=== PATIENT | female | born 1950 | race Caucasian/White ===

== ENCOUNTER → 2017-10-24 17:28 | Outpatient (CLI) | payer MEDICARE | END | disposition home or self-care (01) | LOC: D.LABREF 17:28 | DX: R31.9 Hematuria, unspecified (principal) ==

== ENCOUNTER → 2017-11-03 08:16 | Outpatient (CLI) | payer MEDICARE | END | disposition home or self-care (01) | LOC: D.CT 08:16 | DX: R31.9 Hematuria, unspecified (principal) ==

== ENCOUNTER 2018-03-08 08:00 | Outpatient (CLI) | payer MEDICARE ==
[2018-04-05] MEDS ORDERED: ASTEPRO30 M1 NASAL (14:32)
[2018-04-05] MEDS ORDERED: HYZAAR 100-12.51 TAB PO (14:32)
[2018-04-05] MEDS ORDERED: OXYBUTYNIN CHLOR5 MG PO (14:32)
[2018-04-05] MEDS ORDERED: TOPROL XL50 MG PO (14:32)
[2018-04-05] MEDS ORDERED: OYST-CAL-5001 TAB PO (14:33)
[2018-04-05] MEDS ORDERED: MULTI-DAY VITAM1 TAB PO (14:33)
[2018-04-05] MEDS ORDERED: VITAMIN D5000 UNIT PO (14:34)
[2018-04-05] MEDS ORDERED: CALCIUM 600+D T1 TA1 PO (14:36)
[2018-04-05] MEDS ORDERED: NUTRISOURCE FI1 EACH PO (14:36)
[2018-04-06 06:16] VITALS: BMI 22.6
== END 2018-03-08 09:00 | disposition home or self-care (01) ==
LOC: D.MAMMO 08:00
DX: Z12.31 Encounter for screening mammogram for malignant neoplasm of breast (principal)

== ENCOUNTER 2018-04-06 05:30 | Day surgery (SDC) | payer MEDICARE ==
[2018-04-05 15:29] LABS: HEMATOCRIT 37.3 % (36.0-48.0); HEMOGLOBIN 12.7 g/dL (12-16); MCH 31.2 pg (26.0-34.0); MCV 91.6 fL (80.0-100.0); MEAN PLATELET VOLUME 9.3 fL (7.4-10.4); RBC 4.07 10x6/uL (4.00-5.40); RDW 12.9 % (11.5-14.5); WBC 5.8 10x3/uL (4.8-10.8)
[2018-04-05 15:46] LABS: CALC OSMOLALITY 270 mosm/kg (275-300); CALCIUM 9.6 mg/dL (8.5-10.1); CARBON DIOXIDE 31.4 mmol/L (21.0-32.0); CHLORIDE - SERUM 99 mmol/L (98-107); CREATININE - SERUM 0.7 mg/dL (0.6-1.3); GLUCOSE 95 mg/dL (74-106); POTASSIUM - SERUM 3.9 mmol/L (3.5-5.1); SODIUM 135 mmol/L (136-145); UREA NITROGEN 15 mg/dL (7-18); eGFR NON AFRICAN AMERICAN 88 mL/min (90-120)
[~2018-04-06] VITALS: Ht 167.6 cm; Wt 63.5 kg
--- NOTE | ~2018-04-06 | OP ---
PATIENT NAME: LIV TIERNEY MEDICAL RECORD: [id number] :48 LOCATION:D.OPS ADMISSION DATE: SURGEON: AP STRATTON MD DATE OF OPERATION: 04/06/2018 SURGEON: Ap Stratton MD ANESTHESIA: General anesthesia by Javi Garcia CRNA. PROCEDURES: Cystoscopy, cystocele repair using 8 x 12 cm bovine fascia ([employer] Xenform), rectocele repair by levator ani plication. FINDINGS: On cystoscopy, single ureteral orifices, no bladder tumors. No bladder injury. SPECIMEN: Posterior vaginal wall. PREOPERATIVE DIAGNOSES: Microscopic hematuria, midline cystocele, Flushing-Walker grade III and rectocele grade II. BLOOD LOSS: Minimal. CLINICAL INDICATION: This is a 68-year-old female who has microscopic hematuria and a known pelvic prolapse including a midline cystocele, Flushing-Walker grade III and a rectocele Flushing-Walker grade II. She also has issues with urge urinary incontinence, which is being managed with oxybutynin. For the hematuria workup, she had a CT scan of the abdomen and pelvis, which was normal and urine cytology was also normal. She only requires cystoscopy to complete the hematuria workup. Regarding the pelvic prolapse repair, her coke loader had offered her repair including hysterectomy. She does not want to have a hysterectomy done and she has held off having this done. I offered her cystocele and rectocele repair from a vaginal approach with the ability to leave the uterus in. I did discuss different graft materials including fascia versus mesh. She had initially given consent for mesh. SHE IS ALLERGIC TO SOTALOL, SULFA AND MANGOS. We gave her Ancef industrial controls technician to the OR. DESCRIPTION OF PROCEDURE: The patient was given induction of general anesthesia in supine position. She was then placed into dorsal lithotomy position and prepped and draped. A 16-Pakistani Stout catheter was put into the bladder and put to bag drainage. #2 nylon sutures were used as stay sutures to retract the labia majora laterally. These were anchored to the medial thighs. A weighted speculum was used to hold down the posterior vaginal wall. The cystocele was quite evident. The anterior vaginal wall was infiltrated with Pitressin solution. Twenty units of Pitressin was dissolved in 100 mL of injectable normal saline. This was used for hydrodissection of the anterior vaginal wall. A transverse incision was made at the level of the bladder neck where the urethra met the bladder neck. This was made using a #15 blade. Then, dissection with Metzenbaum scissors was performed to remove the anterior vaginal wall to separate the anterior vaginal wall from the bladder. Laterally, we broke through the pubocervical fascia on either side. Posteriorly, we entered the presacral space and cleared the area around the sacrospinous ligaments and the ischial spine to which they are anchored. While I was doing the dissection of the anterior vaginal wall, I made a small laceration through the anterior vaginal wall about 1 cm in length. This was repaired using a running 4-0 Monocryl. However, due to the presence of the laceration, I was uncomfortable OPERATIVE REPORT [id number] LIV TIERNEY with placement of mesh. I therefore decided to switch to use of bovine fascia to prevent any future infection risk. I measured the distance from ischial spine to ischial spine and it did field return repairer to be 12 cm. The distance from the cervical neck to the level of the bladder neck was 6 cm. An 8 x 12 cm bovine graft was then placed on the prep table. An arch was marked out for the posterior portion of the graft. This arch is to prevent constriction of the rectum and to prevent difficulty with defecation. The distance from the bladder neck region of the graft to the apex of the arch was 6 cm. This arch was cut out using Metzenbaum scissors. The fascial graft was then rehydrated in normal saline containing gentamicin. The 2-0 Prolene Capio sutures were placed. The 2 posterior sutures went through the sacrospinous ligaments. The landmark is 1 cm medial to the ischial spine. Going medially avoids hitting the internal pudendal arteries and pudendal nerve. Anteriorly, the suspensory sutures were placed through Deion's ligament on each side. We were therefore had 4 suspensory sutures. The sutures were then placed through their respective portions of the graft. The 2 posterior sutures were tied down first and then the 2 anterior sutures were tied down and this resulted in complete reduction of the cystocele. I tacked the anterior edge of the graft to the bladder muscle using 4-0 Vicryl simple interrupted sutures to prevent the graft from curling on itself. The Stout catheter was then removed and cystoscopy was performed using a 17-Pakistani cystoscope. No bladder injury at all was seen. No bladder tumors were seen. The Stout catheter was reinserted and put to bag drainage again. We then focused our attention on the rectocele repair. She has a deficient perineal body, but there is a flap of skin here, which prevents good visualization of the distal posterior vagina. An episiotomy incision was made at the 6 o'clock position to cut through this flap of skin. The posterior vaginal wall was infiltrated with Pitressin solution for hydrodissection. A ashley shaped area of the posterior vaginal wall was marked out and then excised using Metzenbaum scissors. This portion of the posterior vaginal wall, which was excised was sent to pathology as a specimen. Using Metzenbaum scissors, we continued to dissect anterior and lateral to the rectum and continuing proximally until we had the levator ani muscles on either side clearly palpable. There was a clear space between the rectum and the muscles. #2 Prolene sutures were placed using the [employer] suture bus driver school on each side. The plication suture then brought the 2 levator ani muscles from each side over the anterior midline to push the rectum down. As the sutures were placed, they were successfully tied down. Four plication sutures were used to create horizontal mattress sutures for plication for the rectocele repair. As we came more distally, I used a #2 Prolene on a regular needle noncutting in order to reduce the levator ani muscles and also to repair the perineal body. The wound was then irrigated out using saline with gentamicin. The vaginal mucosa was reapproximated using running 4-0 Monocryl. Throughout this whole procedure, she had minimal bleeding. The vagina was packed with Kerlix infiltrated with estrogen cream. The Stout catheter was then removed for the last time. The patient was awakened and brought to the recovery room. Prior to her going home today, the vaginal packing will be removed. I will see her in followup next week. TRANSINT:[id number] Voice Confirmation ID: [id number] DOCUMENT ID: [id number] OPERATIVE REPORT [id number] LIV TIERNEY, AP Fallon MD at 1255 CC: [id number] DICTATION DATE: 04/06/18 1133 DEVOPS CONSULTANT: 04/06/18 1232 [id number] [place] [address]
[~2018-04-06 05:30] MED LIST: ASTEPRO30 M1 NASAL; CALCIUM 600+D T1 TA1 PO; HYZAAR 100-12.51 TAB PO; MULTI-DAY VITAM1 TAB PO; NUTRISOURCE FI1 EACH PO; OXYBUTYNIN CHLOR5 MG PO; OYST-CAL-5001 TAB PO; TOPROL XL50 MG PO; VITAMIN D5000 UNIT PO
[2018-04-06 06:16] VITALS: BP 137/68; Ht 167.6 cm; Wt 63.5 kg
== END 2018-04-06 19:55 | disposition home or self-care (01) ==
LOC: D.OPS 05:30 → D.PAN 08:30 → D.OPS 19:55
PROVIDERS: Anesthesiology
DX: N81.10 Cystocele, unspecified (principal); N81.6 Rectocele

== ENCOUNTER → 2018-04-24 14:16 | Outpatient (CLI) | payer MEDICARE ==
[2018-04-06 06:16] VITALS: BMI 22.6
== END | disposition home or self-care (01) ==
LOC: D.LABREF 14:16
DX: N39.0 Urinary tract infection, site not specified (principal)

== ENCOUNTER → 2018-05-08 17:50 | Outpatient (CLI) | payer MEDICARE ==
[2018-04-06 06:16] VITALS: BMI 22.6
== END | disposition home or self-care (01) ==
LOC: D.LABREF 17:50
DX: D72.829 Elevated white blood cell count, unspecified (principal); R31.9 Hematuria, unspecified

== ENCOUNTER → 2019-03-28 08:11 | Outpatient (CLI) | payer MEDICARE ==
[2018-04-06 06:16] VITALS: BMI 22.6
--- NOTE | 2019-04-03 14:14 | ST ---
PATIENT:LIV TIERNEY MEDICAL RECORD: [id number] SEX: F LOCATION:[facility] ORDER #: ADMISSION DATE: 03/28/19 AGE OF PATIENT: 69 REFERRING PHYSICIAN: INTERPRETING PHYSICIAN: JESUS BANERJEE MD DATE OF SERVICE: 03/28/2019 TREADMILL STRESS TEST Baseline ECG is normal. She exercised for 6 minutes and 30 seconds under Walter protocol. Maximum heart rate 142 beats per minute, greater than 85% of max predicted. No ECG changes of ischemia. No symptoms of ischemia. Normal blood pressure response to exercise. No arrhythmias noted. Good exercise tolerance for age. TRANSINT:[id number] Voice Confirmation ID: [id number] DOCUMENT ID: [id number] JESUS BANERJEE MD at 1414 CC: [id number] DICTATION DATE: 04/02/19 1338 COMMERCIAL ATTACHE: 04/02/19 1354 DEP CLI 03/28/19 [id number] [place] [address]
== END | disposition home or self-care (01) ==
LOC: D.HCCARDIO 08:11
PROVIDERS: ATTEND Internal Medicine Interventional Cardiology
DX: I20.9 Angina pectoris, unspecified (principal)

== ENCOUNTER 2019-05-23 08:01 | Outpatient (CLI) | payer MEDICARE ==
[2018-04-06 06:16] VITALS: BMI 22.6
== END 2019-05-23 23:59 | disposition home or self-care (01) ==
LOC: D.MAMMO 08:01
PROVIDERS: ATTEND Family Medicine
DX: Z12.31 Encounter for screening mammogram for malignant neoplasm of breast (principal)

== ENCOUNTER → 2019-06-06 19:16 | Outpatient (CLI) | payer MEDICARE ==
[2018-04-06 06:16] VITALS: BMI 22.6
== END | disposition home or self-care (01) ==
LOC: D.LABREF 19:16
PROVIDERS: ATTEND Urology
DX: R31.9 Hematuria, unspecified (principal)

== ENCOUNTER → 2019-06-26 18:30 | Outpatient (CLI) | payer MEDICARE ==
[2018-04-06 06:16] VITALS: BMI 22.6
== END | disposition home or self-care (01) ==
LOC: D.LABREF 18:30
PROVIDERS: ATTEND Urology
DX: R31.9 Hematuria, unspecified (principal)

== ENCOUNTER 2019-11-30 07:16 | Day surgery (SDC) | payer MEDICARE ==
[2019-11-29 11:07] LABS: HEMATOCRIT 41.4 % (36.0-48.0); HEMOGLOBIN 13.6 g/dL (12-16); MCH 30.9 pg (26.0-34.0); MCHC 32.9 g/dL (31.0-37.0); MCV 94.1 fL (80.0-100.0); MEAN PLATELET VOLUME 8.8 fL (7.4-10.4); RBC 4.4 10x6/uL (4.00-5.40); RDW 12.6 % (11.5-14.5); WBC 5.1 10x3/uL (4.8-10.8)
[~2019-11-30] VITALS: Ht 167.6 cm; Wt 61.2 kg
[2019-11-30 07:02] VITALS: BP 155/63; Ht 167.6 cm; Wt 61.2 kg
[~2019-11-30 07:16] MED LIST changes: +HYDROCHLOROTH12.5 M1 PO
[2019-11-30] MEDS ORDERED: ZOFRAN ODT4 MG/UDTAB PO (10:18)
[2019-11-30] MEDS ORDERED: HYDROCODON-ACE1 EA10 PO (10:18)
--- NOTE | 2019-11-30 13:10 | NUR ---
1248-DISCHARGE CRITERIA MET. REVIEWED POST OPERATIVE INSTRUCTIONS. IV REMOVED WITH CATH INTACT,DISPOSED INTO SHARPS.COVERED WITH COTTON BALL AND MEDIORE TAPE. ESCORTED OUT VIA W/C WITH SPOUSE AWAITING OUTSIDE TO DRIVE HOME
--- NOTE | 2019-12-02 08:57 | OP ---
PATIENT NAME: LIV LYNN MEDICAL RECORD: [id number] :48 LOCATION:[facility] ADMISSION DATE: SURGEON: NABEEL SMITH DO DATE OF OPERATION: 11/30/2019 PROCEDURE PERFORMED: Right shoulder arthroscopy, subacromial decompression, distal clavicle excision, biceps tenodesis, labral debridement and rotator cuff repair. PREOPERATIVE DIAGNOSES: Right shoulder acromioclavicular joint arthritis, subacromial impingement type 2 acromion, full thickness rotator cuff tear and a SLAP tear. POSTOPERATIVE DIAGNOSES: Right shoulder acromioclavicular joint arthritis, subacromial impingement type 2 acromion, full thickness rotator cuff tear and a SLAP tear. INDICATIONS: Ms. Lynn is a 69-year-old female who fell in July onto her right shoulder and had shoulder pain since. She said that it has been getting worse and she even tried some therapy, which made it worse. She was tired in dealing with the pain and weakness and she wants something done surgical. I informed her that it can tear more. She did have an MRI indicating a partial thickness tear which appeared to be about 70% through the supraspinatus tendon and type 2 acromion. I told her it could tear all the way and retract if we did not fix it and she would have continued shoulder pain or we could wait it out some more. She was tired of dealing with the pain and wants something done surgically and did not want it to tear more. She is aware of the risks including infection, bleeding, damage to nerves and vessels, need for further surgery, continued pain, loss of motion of the shoulder and also a good recovery. She signed the consent. SURGEON: Nabeel Smith DO DESCRIPTION OF THE PROCEDURE: The patient received a block by anesthesia in the preoperative area and was taken to the operative suite, laid in the left lateral decubitus position with the right shoulder up, given 900 mg clindamycin. The right shoulder was then prepped and draped in sterile fashion. She was sedated and LMA was placed. Once the right shoulder was prepped and draped in sterile fashion, a time-out was performed, everyone was in agreeance with the correct side, site, and patient and procedure. I then inserted an 18-gauge spinal needle through the posterior portal into the shoulder joint itself and then plated the shoulder joint with 60 mL normal saline and then established a posterior portal with an 11-blade scalpel. Trocar was entered in the joint. We then established an anterior portal using 18-gauge spinal needle and 11-blade scalpel and trocar entered. I saw the SLAP tear in the shoulder joint, the 70% thickness tear of the supraspinatus also. The subscap was in good position and in good shape. There were no tears seen in it and there was no cartilage loss in the joint space and no loose bodies in the inferior gutter. I then brought the burner and then did a biceps tenotomy and labral debridement. We then went to the subacromial space, established a lateral portal, placing 18-gauge spinal needle and 11-blade scalpel and did a subacromial decompression, distal clavicle excision, and acromioplasty and removed the bursa. We then marked the rotator cuff tear on the articular side by putting the scope back in the articular surface or in the joint with an 18- gauge spinal needle through the lateral portal. We then extended that portal with a 15 blade scalpel. We made careful OPERATIVE REPORT [id number] LIV LYNN dissection down to the tear. We then removed the bursa with a rongeur and did remove the cortex, decorticated the proximal humerus at the greater tuberosity and then put in a 4.5 composite the double loaded suture anchor and took the scorpion through the rotator cuff and brought it over to a lateral row anchor and then placed a Regeneten patch on top of that repair and stabilized it in place. We then lana attention to the anterior humerus. An incision was made in the anterior humerus, careful dissection made down to the long head biceps tendon taken out through the incision and a 2.9 unicortical jugular lock bicep fixation anchor was put in and the biceps was taken through the loop cinched down and then the excess suture was used to tie through the bicep and pass through the bicep with a free needle. Excess tendon and suture were then cut. We then irrigated the sites. The sites were closed with 2-0 Vicryl in inverted interrupted fashion, 4-0 Monocryl in the skin. The rotator cuff repair and the bicep was done by myself and Raymundo Chong, certified surgical assisted living manager and then the 2 anterior and posterior portal holes were closed with 4-0 Monocryl in inverted interrupted fashion. Dermabond was placed on all of them and she was dressed with Telfa and Tegaderm and put in a sling, taken to recovery in stable condition. BLOOD LOSS: Minimal. COMPLICATIONS: None TRANSINT:[id number] Voice Confirmation ID: [id number] DOCUMENT ID: [id number] NABEEL SMITH DO at 0857 CC: [id number] DICTATION DATE: 11/30/19 1034 LOCKER ROOM CLERK: 11/30/192020 [facility] 11/30/19 [facility] [address] [place] [address]
== END 2019-11-30 12:48 | disposition home or self-care (01) ==
LOC: D.OPS 07:16
PROVIDERS: Anesthesiology; ATTEND Orthopaedic Surgery
DX: M75.101 Unspecified rotator cuff tear or rupture of right shoulder, not specified as traumatic (principal); M19.011 Primary osteoarthritis, right shoulder; M75.41 Impingement syndrome of right shoulder; S43.431A Superior glenoid labrum lesion of right shoulder, initial encounter; X58.XXXA Exposure to other specified factors, initial encounter; M25.511 Pain in right shoulder; I10 Essential (primary) hypertension; E78.5 Hyperlipidemia, unspecified

== ENCOUNTER 2020-05-26 11:00 | Outpatient (CLI) | payer MEDICARE ==
[2019-11-30 07:02] VITALS: BMI 21.8
[~2020-05-26 11:00] MED LIST changes: +HYDROCODON-ACE1 EA10 PO; +ZOFRAN ODT4 MG/UDTAB PO
== END 2020-05-26 12:00 | disposition home or self-care (01) ==
LOC: D.MAMMO 11:00
PROVIDERS: ATTEND Family Medicine
DX: Z12.31 Encounter for screening mammogram for malignant neoplasm of breast (principal)